=== PATIENT | male | born 1990 | race African-American/Black ===

== ENCOUNTER 2017-11-16 17:11 | Emergency (ER) | payer OTHER ==
[2017-11-16 17:43] VITALS: BP 125/55
--- NOTE | 2017-11-16 17:51 | ED Physician Documentation ---
PD HPI BACK INJURY - Stated complaint Stated Complaint: BACK PAIN - History obtained from History obtained from: Patient - History of Present Illness Location: Lower Type of injury: Twist Where injury occurred: Other (gym) Timing - onset: Today Timing - duration: Minutes Timing - details: Abrupt onset, Still present Quality: Pain, Spasm, Sharp Improved by: Rest, Immobilization Worsened by: Moving. 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 He has significant midline pain with any movement he is fairly comfortable when he is still. This did cause him to drop to his knees and get off of the court and 1 of the trainers called paramedics. Review of Systems Constitutional: denies: Fever Eyes: denies: Decreased vision Ears: denies: Ear pain Nose: denies: Congestion Throat: denies: Sore throat Respiratory: denies: Dyspnea, Cough GI: denies: Nausea, Vomiting : denies: Dysuria, Frequency PD PAST MEDICAL HISTORY - Past Medical History Past Medical History: No - Present Medications Home Medications: Ambulatory Orders Medication Instructions Recorded Confirmed Cyclobenzaprine [Flexeril] 10 mg PO TID PRN #20 tablet 11/16/17 HYDROcod/ACETAM 5/325 [[place] 5/325] 1 - 2 ea PO Q6H PRN #15 tablet 11/16/17 - Allergies Allergies/Adverse Reactions: Allergies Allergy/AdvReac Type Severity Reaction Status Date / Time No Known Drug Allergies Allergy Verified 11/16/17 17:43 - Social History Does the pt smoke?: No Smoking Status: Never smoker PD ED PE NORMAL - Vitals Vital signs reviewed: Yes (normal ) - General General: Alert and oriented X 3, No acute distress, Well developed/nourished, Other (well developed healthy muscular young man) - HEENT HEENT: Atraumatic, PERRL, EOMI - Neck Neck: Supple, no meningeal sign - Respiratory Respiratory: No respiratory distress - Back Back: No CVA TTP, No spinal TTP, Other (The pain is centered in the lower lumbar spine area and this is not specifically tender to palpate but the patient does have pain with movement. ) - Derm Derm: Normal color, Warm and dry, No rash - Extremities Extremities: No deformity, No edema - Neuro Neuro: Alert and oriented X 3, coil repair technician 2-12 intact, No motor deficit, No sensory deficit, Normal speech Eye Opening: Spontaneous Motor: Obeys Commands Verbal: Oriented GCS Score: 15 - Psych Psych: Normal mood, Normal affect Results - Vitals Vitals: Vital Signs - 24 hr 11/16/17 17:38 Temperature 36.7 C Heart Rate 77 Respiratory 18 Rate Blood Pressure 125/55 L O2 Saturation 99 Oxygen O2 Source Room air PD MEDICAL DECISION MAKING - ED course Complexity details: considered differential, d/w patient ED course: 27-year-old male with a muscular injury to his lower back will likely take 10- 14 days to heal up. I consider vertebral compression fracture unlikely by history or exam. Plain films are not obtained at this time. - Sepsis Event Vital Signs: Vital Signs - 24 hr 11/16/17 17:38 Temperature 36.7 C Heart Rate 77 Respiratory 18 Rate Blood Pressure 125/55 L O2 Saturation 99 Oxygen O2 Source Room air Departure - Departure Disposition: 01 Home, Self Care Clinical Impression: Acute lumbar myofascial strain Qualifiers: Encounter type: initial encounter Qualified Code(s): S39.012A - Strain of muscle, fascia and tendon of lower back, initial encounter Condition: Stable Instructions: ED Sprain Strain Lumbar Follow-Up: CINDY Franco [Provider Group] Prescriptions: Cyclobenzaprine [Flexeril] 10 mg PO TID PRN #20 tablet PRN Reason: Spasms HYDROcod/ACETAM 5/325 [[place] 5/325] 1 - 2 ea PO Q6H PRN #15 tablet PRN Reason: Pain
== END 2017-11-16 18:10 | disposition home or self-care (01) ==
LOC: ED 17:11
DX: S39.012A Strain of muscle, fascia and tendon of lower back, initial encounter (principal); X50.1XXA Overexertion from prolonged static or awkward postures, initial encounter; Y93.67 Activity, basketball; Y92.39 Other specified sports and athletic area as the place of occurrence of the external cause
CPT/HCPCS: 99283

== ENCOUNTER 2018-11-01 16:52 | Emergency (ER) | payer OTHER ==
--- NOTE | 2018-11-01 20:08 | ED Physician Documentation ---
PD HPI HEAD INJURY - Stated complaint Stated Complaint: FACE LAC - Chief complaint Chief Complaint: Laceration - History obtained from History obtained from: Patient - History of Present Illness Mechanism of head injury: Blow Timing - onset: Enter time (16:00), Today Location of injury: Left Associated symptoms: No: LOC, AMS, Neck pain Recently seen: Not recently seen - Additional information Additional information: accidentally struck by another player while playing basketball approximately 3 PM today. Other player's chin struck patient's left cheek , causing left cheek laceration. UTD on tetanus, denies LOC, headache, neck pain Review of Systems Eyes: reports: Reviewed and negative Skin: reports: Laceration (s) Neurologic: reports: Head injury. denies: Focal weakness, Numbness, Headache, LOC PD PAST MEDICAL HISTORY - Past Medical History Past Medical History: No - Present Medications Home Medications: Ambulatory Orders Medication Instructions Recorded Confirmed Cyclobenzaprine [Flexeril] 10 mg PO TID PRN #20 tablet 11/16/17 HYDROcod/ACETAM 5/325 [[place] 5/325] 1 - 2 ea PO Q6H PRN #15 tablet 11/16/17 - Allergies Allergies/Adverse Reactions: Allergies Allergy/AdvReac Type Severity Reaction Status Date / Time No Known Drug Allergies Allergy Verified 11/01/18 17:05 - Social History Does the pt smoke?: No Smoking Status: Never smoker PD ED PE NORMAL - Vitals Vital signs reviewed: Yes - General General: Alert and oriented X 3, No acute distress, Well developed/nourished - HEENT HEENT: PERRL, EOMI - Neck Neck: No bony TTP PD ED PE EXPANDED - HEENT HEENT Visual: 1 - laceration (2 cm linear laceration without bony tenderness) Results - Vitals Vitals: Vital Signs - 24 hr 11/01/18 11/01/18 17:03 21:11 Temperature 36.5 C Heart Rate 62 57 L Respiratory 16 16 Rate Blood Pressure 118/74 136/80 H O2 Saturation 100 100 Oxygen O2 Source Room air Procedures - Laceration (location) Face left Length in cm: 2 Wound type: Linear Neurovascular status: Sensory intact, Motor intact, Vascular intact Tendon involvement: Tendon intact Anesthesia: Lidocaine 1% Wound Preparation: Chlorhexadine Skin layer closure: Nylon, Interrupted, Running, Size #-0 - enter number (6-0) Other: Patient tolerated well, No complications, Neurovascular intact, Tetanus UTD Complexity: Simple PD MEDICAL DECISION MAKING - ED course Complexity details: considered differential, d/w patient Departure - Departure Disposition: 01 Home, Self Care Clinical Impression: Laceration Condition: Good Instructions: ED Laceration Facial Sutr Tape Follow-Up: CINDY Franco [Provider Group] (Follow up in 5-6 days for removal of stitches) Discharge Date/Time: 11/01/18 21:18
[2018-11-01] MEDS ORDERED: LIDOCAINE 1% 2 ML VIAL SUBQ STA (20:15)
[2018-11-01] MEDS ORDERED: BACITRACIN OINT TOP STA (21:10)
[2018-11-01 21:18] VITALS: BP 136/80
== END 2018-11-01 21:18 | disposition home or self-care (01) ==
LOC: ED 16:52
DX: S01.412A Laceration without foreign body of left cheek and temporomandibular area, initial encounter (principal); W50.0XXA Accidental hit or strike by another person, initial encounter; Y93.67 Activity, basketball
CPT/HCPCS: 12011; 99282; A9270

== ENCOUNTER 2019-12-30 19:01 | Emergency (ER) | payer OTHER ==
--- NOTE | 2019-12-30 21:02 | ED Physician Documentation ---
History of Present Illness - Stated complaint Stated Complaint: CHEST PX/HEAD PX - Chief complaint Chief Complaint: Heent - History obtained from History obtained from: Patient - Additonal information Additional information: 29-year-old male presents to the emergency department for evaluation of sore throat myalgias body ache. He reports that he was tested at [facility] yesterday for COVID-19. The results are pending. Today he endorses a sore throat but no fever or exudate. He does report that he has intermittent headaches that have been worse over the last few days. No vomiting. No diplop ia. Has taken Tylenol and ibuprofen with good relief of pain. He does report that he has chest pain that he has had since June. He has been at [facility] and has had unremarkable labs and an EKG. He is continuing to follow-up with him. He denies any history of high blood pressure tobacco or alcohol/drug use. Review of Systems Constitutional: reports: Chills, Myalgias. denies: Fever Eyes: reports: Reviewed and negative Ears: reports: Reviewed and negative Nose: reports: Reviewed and negative Throat: reports: Sore throat Cardiac: reports: Chest pain / pressure. denies: Palpitations, Pedal edema, Calf pain Respiratory: denies: Dyspnea, Cough, Hemoptysis, Wheezing GI: reports: Vomiting. denies: Abdominal Pain, Nausea : denies: Dysuria Skin: denies: Rash, Lesions Musculoskeletal: denies: Neck pain, Joint pain, Joint swelling Neurologic: reports: Headache. denies: Numbness, Difficulty speaking, Near syncope, Syncope, Seizure, LOC Psychiatric: denies: Depressed, Suicidal Endocrine: denies: Polydypsia, Polyuria PD PAST MEDICAL HISTORY - Present Medications Home Medications: Ambulatory Orders Medication Instructions Recorded Confirmed Albuterol Sulfate [Albuterol 8.5 gm IH QID PRN 12/30/19 12/30/19 Sulfate Hfa] - Allergies Allergies/Adverse Reactions: Allergies Allergy/AdvReac Type Severity Reaction Status Date / Time No Known Drug Allergies Allergy Verified 12/30/19 19:15 - Social History Does the pt smoke?: No Smoking Status: Never smoker PD ED PE NORMAL - General General: Alert and oriented X 3 - HEENT HEENT: PERRL - Neck Neck: Supple, no meningeal sign, No bony TTP, No adenopathy, Thyroid normal (Mild posterior oropharynx without exudate. No tender anterior cervical lymphadenopathy) - Cardiac Cardiac: RRR, No murmur - Respiratory Respiratory: No respiratory distress, Clear bilaterally - Abdomen Abdomen: Normal bowel sounds, Soft, Non tender, Non distended - Derm Derm: Normal color, Warm and dry, No rash - Extremities Extremities: No deformity, No tenderness to palpate, Normal ROM s pain - Neuro Neuro: Alert and oriented X 3 Motor: Obeys Commands Verbal: Oriented Results - Vitals Vitals: Vital Signs - 24 hr 12/30/19 19:10 Temperature 36.7 C Heart Rate 67 Respiratory 18 Rate Blood Pressure 127/72 O2 Saturation 98 Oxygen O2 Source Room air - Labs Labs: Laboratory Tests 12/30/19 21:00 Group A Strep Rapid Negative PD MEDICAL DECISION MAKING - ED course Complexity details: considered differential, d/w patient ED course: This is a very well-appearing 29-year-old male here with chief complaint of headache, myalgias, sore throat, chest pain. He reports that he has had intermittent chest pain since June of this year and has been seen by [facility] with unremarkable testing. He had COVID-19 screening completed yesterday. He will not receive results for about 48-72 more hours. Strep today test today is negative. I encouraged him to continue close follow-up with [facility] for the chronicity of his symptoms. Emergent return precautions discussed. He was advised to remain in quarantine until he is aware of his C OVID-19 results Departure - Departure Disposition: 01 Home, Self Care Clinical Impression: Sore throat Chest pain Qualifiers: Chest pain type: unspecified Qualified Code(s): R07.9 - Chest pain, unspecified Condition: Stable Record reviewed to determine appropriate education?: Yes Comments: Michael it is important that you remain in quarantine until you know your COVID- 19 results. Your rapid strep test today is negative. Given the duration of your myalgias headache and chest pain it is important to continue very close follow-up with [facility] for longer-term evaluation and treatment
[2019-12-30 21:16] LABS: RAPID STREP SCREEN Negative (Negative)
[2019-12-30 21:42] VITALS: BP 125/72
== END 2019-12-30 21:42 | disposition home or self-care (01) ==
LOC: ED 19:01
DX: J02.9 Acute pharyngitis, unspecified (principal); R07.9 Chest pain, unspecified; R51.9 Headache, unspecified; M79.18 Myalgia, other site
CPT/HCPCS: 87070; 87430; 99282; 99283

== ENCOUNTER 2020-09-03 08:00 | Outpatient (CLI) | payer OTHER ==
[2020-09-03 22:02] LABS: CHLAMYDIA TRACHOMATIS DNA NEGATIVE (NEGATIVE); NEISSERIA GONORRHOEAE DNA NEGATIVE (NEGATIVE)
[2020-09-04 14:02] LABS: HIV AG/AB 4TH GEN NON-REACTIVE (NON-REACTIVE)
[2020-09-07 15:37] LABS: HSV 1 IGG TYPE SPECIFIC AB <0.90 index; HSV 2 IGG TYPE SPECIFIC AB <0.90 index
== END 2020-09-03 23:59 | disposition home or self-care (01) ==
LOC: LAB.N 08:00
PROVIDERS: ATTEND Family Medicine
DX: N48.9 Disorder of penis, unspecified (principal)
CPT/HCPCS: 36415; 81599; 86592; 86695; 86696; 87389; 87491; 87591; 87661

== ENCOUNTER 2021-03-04 13:55 | Outpatient (CLI) | payer OTHER ==
[2021-03-04 22:44] LABS: CHLAMYDIA TRACHOMATIS DNA NEGATIVE (NEGATIVE); NEISSERIA GONORRHOEAE DNA NEGATIVE (NEGATIVE)
[2021-03-05 10:32] LABS: HEPATITIS C ANTIBODY REACTIVE (NON-REACTIVE)
[2021-03-08 15:16] LABS: HSV 1 IGG TYPE SPECIFIC AB <0.90 index; HSV 2 IGG TYPE SPECIFIC AB <0.90 index
[2021-03-08 17:36] LABS: HCV RNA QNT <1.18 NOT DETECTED Log IU/mL (NOT DETECTED); HCV RNA QUANT RT PCR <15 NOT DETECTED IU/mL (NOT DETECTED)
== END 2021-03-04 23:59 | disposition home or self-care (01) ==
LOC: LAB.N 13:55
PROVIDERS: ATTEND Family Medicine
DX: Z11.3 Encounter for screening for infections with a predominantly sexual mode of transmission (principal)
CPT/HCPCS: 81599; 86592; 86695; 86696; 86803; 87389; 87491; 87591; 87661

== ENCOUNTER 2022-09-28 17:30 | Outpatient (CLI) | payer OTHER ==
[2022-09-28 22:52] LABS: CHLAMYDIA TRACHOMATIS DNA NEGATIVE (NEGATIVE); NEISSERIA GONORRHOEAE DNA NEGATIVE (NEGATIVE); TRICHOMONAS VAGINALIS DNA NEGATIVE (NEGATIVE)
[2022-09-30 03:09] LABS: RPR Non Reactive (Non Reactive)
[2022-09-30 04:08] LABS: HCV AB Non Reactive (Non Reactive); HIV SCREEN 4TH GENERATION Non Reactive (Non Reactive)
[2022-09-30 05:12] LABS: HSV 1 IGG TYPE SPEC <0.91 index (0.00-0.90); HSV 2 IGG TYPE SPEC <0.91 index (0.00-0.90)
== END 2022-09-28 17:45 | disposition home or self-care (01) ==
LOC: LAB.N 17:30
PROVIDERS: ATTEND Registered Nurse
DX: Z11.3 Encounter for screening for infections with a predominantly sexual mode of transmission (principal)
CPT/HCPCS: 36415; 86592; 86695; 86696; 86803; 87389; 87491; 87591; 87661

== ENCOUNTER 2022-11-22 18:27 | Emergency (ER) | payer OTHER ==
--- OUTSIDE RECORDS SUMMARY | 2022-11-22 18:54 | EXTERNAL MEDICAL SUMMARY RPT | Continuity of Care Document ---
Author Name Unknown Address [address] [place] [address] Phone Organization [place] Address [address] [place] [address] Phone Care Team Providers Care Land Leasing Examiner Name Role Phone Unavailable Unavailable Unavailable Carson Stencil Maker,Radio Mechanic Helper, Michael Unavailable Unavailabl e Radha Stencil Maker Enp, Anna Unavailable Unavail able Gabino Aleman, Lilly Dukes Unavailable Unavailabl e Medications date description facility 2022-09-28 00:00 No Known Medications All 2022-09-28 00:00 No Known Medications All 2022-09-28 00:00 No Known Medications All Problems date description facility 2022-09-28 00:00 Cough All 2022-09-28 00:00 Cough All 2022-09-28 00:00 Cough All 2022-09-28 00:00 Acute cough All 2022-09-28 00:00 Acute cough All 2022-09-28 00:00 Acute cough All Procedures date description facility 2022-09-28 00:00 Visit Code Hold All 2022-09-28 00:00 Visit Code Hold All 2022-09-28 00:00 Visit Code Hold All 2022-09-28 00:00 Herpes Simplex Virus (HSV) 1&2 IGG w/Rflx to Supplemental HSV2 All 2022-09-28 00:00 Herpes Simplex Virus (HSV) 1&2 IGG w/Rflx to Supplemental HSV2 All 2022-09-28 00:00 Herpes Simplex Virus (HSV) 1&2 IGG w/Rflx to Supplemental HSV2 All 2022-09-28 00:00 RPR, Serum with Reflex All 2022-09-28 00:00 RPR, Serum with Reflex All 2022-09-28 00:00 RPR, Serum with Reflex All 2022-09-28 00:00 Hep C AB with Reflex All 2022-09-28 00:00 Hep C AB with Reflex All 2022-09-28 00:00 Hep C AB with Reflex All 2022-09-28 00:00 HIV 1&2 with reflex All 2022-09-28 00:00 HIV 1&2 with reflex All 2022-09-28 00:00 HIV 1&2 with reflex All 2022-09-28 00:00 CHLAM, NEISSERIA, TRICH DNA All 2022-09-28 00:00 CHLAM, NEISSERIA, TRICH DNA All 2022-09-28 00:00 CHLAM, NEISSERIA, TRICH DNA All Results/Labs test date facility value unit notes Social History date description facility 2022-09-29 00:00 Unknown if ever smoked All 2022-09-30 00:00 Unknown if ever smoked All 2022-10-04 00:00 Unknown if ever smoked All Vital Signs date measurement value units 2022-09-28 00:00 BMI 30.73 kg/m2 2022-09-28 00:00 BP_diastolic 85 mmHg 2022-09-28 00:00 BP_systolic 137 mmHg 2022-09-28 00:00 heart_rate 79 /min 2022-09-28 00:00 height_metric 172.72 cm 2022-09-28 00:00 height_standard 68 in 2022-09-28 00:00 respiration_rate 18 /min 2022-09-28 00:00 temperature_metric 36.67 C 2022-09-28 00:00 temperature_standard 98 F 2022-09-28 00:00 weight_metric 91.35 kg 2022-09-28 00:00 weight_standard 201.4 lb
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
[2022-11-23 11:00] VITALS: BP 149/100; O2SAT 100
== END 2022-11-22 21:46 | disposition home or self-care (01) ==
LOC: ED 18:27
DX: T75.4XXA Electrocution, initial encounter (principal); Y99.1 Military activity
CPT/HCPCS: 99281; 99283